=== PATIENT | male | born 1965 | race Caucasian/White ===

== ENCOUNTER 2017-07-05 08:52 | Emergency (ER) | payer OTHER ==
[~2017-07-05] VITALS: Ht 180.3 cm; Wt 75.7 kg
[~2017-07-05 08:52] MED LIST: ADVAIR 250/501 DISK IH; ALLEGRA ALLERG180 MG PO; ASCORBIC ACID500 M3 PO; ASPIR 8181 M1 PO; Advair HFA 115/21 IH; BUPROPION XL300 MG PO; BUTALB-APAP-CA1 EAC1 PO; Bactrim,Septra Singl PO; CELEXA20 MG PO; CENTRAVITES1 EAC1 PO; CITALOPRAM HBR20 MG PO; CRESTOR10 MG PO; CRESTOR20 MG PO; DALIRESP500 MCG PO; DEPO-TESTOS200 MG/ML IM; DICLOFENAC SODI75 MG PO; ENDOCET 7.5-321 EACH PO; FIORICET 50-301 EACH PO; FLEXERIL10 MG PO; HYDROCODON-ACE1 EA12 PO; HYDROCODON-ACE1 EAC1 PO; LOPRESSOR50 MG PO; METOPROLOL PO; NEXIUM40 MG PO; OXYCODONE-APAP1 EAC6 PO; PROPOXYPHEN-AP1 EAC2 PO; RELPAX20 MG PO; SPIRIVA1 INHALATI IH; SYMBICORT60 INHALAT IH; Symbicort 160-4.5 mc IH; Tylenol Regular Stre PO; VICOPROFEN1 TABLET PO; VITAMIN D-32000 UNI1 PO; Vicodin ES 7.5/750 PO; Vitamin D PO; Wellbutrin SR PO
[2017-07-05] MEDS ORDERED: ALLERGY25 M2 PO (08:58)
[2017-07-05] MEDS ORDERED: PANTOPRAZOLE SO40 MG PO (08:59)
[2017-07-05] MEDS ORDERED: BUPROPION XL300 MG PO (08:59)
[2017-07-05] MEDS ORDERED: PERCOCET 10/1 TABLET PO (09:01)
[2017-07-05 09:55] LABS: EOSINOPHIL (%) 1.9 % (0-5); EOSINOPHIL COUNT 0.1 K/uL (0-0.3); HEMATOCRIT 40.8 % (38.0-50.0); IMMATURE GRANULOCYTE (%) 0.5 % (0.0-0.7); INSTRUMENT ABS NEUTROPHIL CT 4.4 K/uL; LYMPHOCYTE COUNT 2.1 K/uL (1.0-2.8); MCHC 33.8 G/DL (30.0-36.0); MCV 85.7 FL (86-99); MEAN PLAT.VOLUME 8.7 uM^3 (9.0-12.4); MONOCYTE (%) 8.9 % (3-12); MONOCYTE COUNT 0.7 K/uL (0-0.8); NEUTROPHIL (%) 59.5 % (45-76); NEUTROPHIL COUNT 4.4 K/uL (1.8-6.4); PLATELET COUNT 133 K/uL (156-360); RBC DIS.WIDTH-CV 13.2 % (11.8-14.6); RED BLOOD COUNT 4.76 M/uL (4.00-5.50); WHITE BLOOD COUNT 7.4 K/uL (4.1-10.2)
[2017-07-05 10:05] LABS: CHLORIDE 105 mEq/L (99-109); POTASSIUM 3.8 mEq/L (3.7-5.4); SODIUM 140 mEq/L (136-147)
[2017-07-05 10:06] LABS: GLUCOSE 89 mg/dL (70-99)
[2017-07-05 10:08] LABS: ANION GAP 9 MEQ/L (2-14)
[2017-07-05 10:10] LABS: GFR ESTIMATE (CALCULATED) > 59 mL/min/
[2017-07-05 10:11] LABS: UREA NITROGEN (BUN) 13 mg/dL (9-23)
[2017-07-05 10:17] LABS: TROP-I INTERPRETATION NEGATIVE; TROPONIN-I < 0.01 ng/mL (0.0-0.30)
[2017-07-05 12:55] LABS: TROP-I INTERPRETATION NEGATIVE; TROPONIN-I < 0.01 ng/mL (0.0-0.30)
[2017-07-05 13:26] VITALS: BP 114/83
== END 2017-07-05 13:27 | disposition home or self-care (01) ==
LOC: EME 08:52
PROVIDERS: Emergency Medicine
DX: R07.89 Other chest pain (principal); I10 Essential (primary) hypertension; J44.9 Chronic obstructive pulmonary disease, unspecified; Z79.82 Long term (current) use of aspirin; Z87.891 Personal history of nicotine dependence
CPT/HCPCS: 71010; 80048; 84484; 85025; 93005; 99281; 99284